=== PATIENT | male | born 1975 | race African-American/Black ===

== ENCOUNTER 2018-06-14 12:55 | Emergency (ER) | payer OTHER ==
[~2018-06-14] VITALS: Ht 180.3 cm; Wt 94.3 kg
[2018-06-14 12:57] VITALS: BP 198/119
[2018-06-14] MEDS ORDERED: FOSINOPRIL 10 M10 M1 PO (13:07)
[2018-06-14] MEDS ORDERED: FLAGYL500 M1 PO (13:46)
== END 2018-06-14 13:54 | disposition home or self-care (01) ==
LOC: ER 12:55
DX: Z20.2 Contact with and (suspected) exposure to infections with a predominantly sexual mode of transmission (principal); Z88.2 Allergy status to sulfonamides